=== PATIENT | male | born 1935 | race Caucasian/White ===

== ENCOUNTER → 2017-12-17 | Outpatient (CLI) | payer MEDICARE ==
[~2017-12-17] MED LIST: BISO1TAB7 PO; EPI-PEN INJ; LEVO88TA7 PO; LORA10TA7 PO; OMEP20CA10 PO; RAMI5CAP21 PO; ROSU5TAB PO
== END | disposition home or self-care (01) ==
LOC: RAH 13:37
PROVIDERS: ATTEND Internal Medicine
DX: I82.811 Embolism and thrombosis of superficial veins of right lower extremity (principal)
CPT/HCPCS: 93971